=== PATIENT | male | born 2000 | race Hispanic/Latino ===

== ENCOUNTER 2018-11-07 16:13 | Emergency (ER) | payer SELFPAY | END 2018-11-07 17:06 | disposition home or self-care (01) | LOC: BURERS 16:13 | DX: G51.0 Bell's palsy (principal); I10 Essential (primary) hypertension | CPT/HCPCS: 99283 ==

== ENCOUNTER 2019-02-16 17:43 | Emergency (ER) | payer SELFPAY ==
[2019-02-16 19:08] LABS: Bilirubin Negative (Negative); Blood, Urine Negative (Negative); Clarity Clear (Clear); Glucose, Urine (Dipstick) Negative (Negative); Leukocyte Negative (Negative); Nitrite Negative (Negative); Protein, Urine (Dipstick) Negative (Neg-Trace)
== END 2019-02-16 19:51 | disposition home or self-care (01) ==
LOC: BURERS 17:43
DX: K40.90 Unilateral inguinal hernia, without obstruction or gangrene, not specified as recurrent (principal)
CPT/HCPCS: 81003; 99281

== ENCOUNTER 2020-04-03 16:59 | Outpatient (CLI) | payer OTHER ==
[2020-04-03 17:58] LABS: Bilirubin Negative (Negative); Blood, Urine Negative (Negative); Clarity Clear (Clear); Glucose, Urine (Dipstick) Negative (Negative); Ketone, Urine Negative (Negative); Leukocyte Negative (Negative); Nitrite Negative (Negative); Protein, Urine (Dipstick) 30 mg/dL (Neg-Trace); Urobilinogen 0.2 mg/dL (Less than 2); pH, Urine 5.5 (5.0-9.0)
[2020-04-03 17:59] LABS: Specific Gravity, Urine 1.031 (1.002-1.036)
[2020-04-03 18:11] LABS: Bacteria/HPF 2+ HPF (None Seen); Mucous/LPF 2+ LPF (<2+); RBC/HPF None Seen HPF (0-3); Squamous Epithelial 0-3 HPF (0-3); WBC/HPF 0-3 HPF (0-3)
[2020-04-04 21:20] LABS: Chlam.trachomatis by PCR,Urine Not Detected (NotDetected)
== END 2020-04-03 17:00 | disposition home or self-care (01) ==
LOC: BURLAB 16:59
PROVIDERS: ATTEND Physician Assistant
DX: R10.31 Right lower quadrant pain (principal)
CPT/HCPCS: 81001; 87491; 87591

== ENCOUNTER 2021-07-03 15:47 | Emergency (ER) | payer OTHER | END 2021-07-03 17:45 | disposition home or self-care (01) | LOC: BURERS 15:47 | DX: R51.9 Headache, unspecified (principal); M25.562 Pain in left knee; V53.5XXA Driver of pick-up truck or van injured in collision with car, pick-up truck or van in traffic accident, initial encounter; Y92.410 Unspecified street and highway as the place of occurrence of the external cause | CPT/HCPCS: 70450; 71045 ==

== ENCOUNTER 2021-10-02 13:05 | Emergency (ER) | payer SELFPAY ==
[2021-10-02 13:35] LABS: #Basophils 0.1 thou/uL (0.0-0.2); #Eosinphils 0.3 thou/uL (0.0-0.7); #Lymphocytes 2.8 thou/uL (1.20-3.40); #Monocytes 0.4 thou/uL (0.11-0.59); #Neutrophils 6.9 thou/uL (1.40-6.50); %Eosinophils 3.1 % (0.0-10.0); %Lymphocytes 26.5 % (21.0-51.0); %Monocytes 3.6 % (0.0-10.0); %Neutrophils 65.8 % (42.0-75.0); Mean Corpuscular Hemoglobin 25.9 pg (27.0-31.0); Mean Corpuscular Volume 78.3 fL (78.0-98.0); Platelet Count 353 thou/uL (130-400); RBC Distribution Width 13.5 % (11.5-14.5); Red Blood Cell (RBC) Count 5.81 mill/uL (4.70-6.10); White Blood Cell (WBC) Count 10.5 thou/uL (4.8-10.8)
[2021-10-02] MEDS ORDERED: Famotidine 20 MG TAB ONE (13:47)
[2021-10-02] MEDS ORDERED: Glycopyrrolate 0.4 MG/ 2 ML VIAL ONE (13:48)
[2021-10-02] MEDS ORDERED: Ondansetron PF 4 MG/2 ML Vial ONE (13:48)
[2021-10-02 13:52] LABS: ALT (SGPT) 41 U/L (8-55); AST (SGOT) 22 U/L (5-34); Albumin 4.2 g/dL (3.5-5.0); Alkaline Phosphatase 117 U/L (40-110); Anion Gap 13 mmol/L (10-20); BUN (Urea Nitrogen) 12 mg/dL (8.9-20.6); Bilirubin, Total 0.3 mg/dL (0.2-1.2); Calc. Creatinine Clearance 0 mL/min (70-130); Calcium 9.5 mg/dL (7.8-10.44); Carbon Dioxide 26 mmol/L (22-29); Chloride 104 mmol/L (98-107); Estimated GFR 130; Globulin 3.3 g/dL (2.4-3.5); Glucose 170 mg/dL (70-105); Lipase 21 U/L (8-78); Potassium 3.6 mmol/L (3.5-5.1); Protein, Total 7.5 g/dL (6.0-8.3); Sodium 139 mmol/L (136-145)
== END 2021-10-02 14:22 | disposition home or self-care (01) ==
LOC: BURERS 13:05
DX: K52.9 Noninfective gastroenteritis and colitis, unspecified (principal)
CPT/HCPCS: 80053; 83690; 85025; 94760; 96374; 96375; J2405

== ENCOUNTER 2024-02-19 12:43 | Emergency (ER) | payer OTHER, SELFPAY ==
[2024-02-19] MEDS ORDERED: Fluorescein Opthalmic Strip ONE (13:13)
[2024-02-19] MEDS ORDERED: Tetracaine 0.5% PF 4 ML BOT ONE (13:13)
== END 2024-02-19 13:45 | disposition home or self-care (01) ==
LOC: BURERS 12:43
DX: H10.9 Unspecified conjunctivitis (principal)
CPT/HCPCS: 99283